=== PATIENT | female | born 1980 | race Two or more races ===

== ENCOUNTER 2018-09-12 03:27 | Emergency (ER) | payer MEDICAID, MEDICARE ==
[~2018-09-12] VITALS: Ht 160 cm; Wt 112.0 kg
[2018-09-12] MEDS ORDERED: MEPERIDINE HCL (50 MG/ML) 1 ML VIAL IM ONE (04:15)
[2018-09-12] MEDS ORDERED: methylPREDNISolone SOD SUCC 125 MG/2 ML VL IV ONE (04:15)
[2018-09-12] MEDS ORDERED: SODIUM CHLORIDE 0.9% 1,000 ML IV ONE (04:15)
[2018-09-12] MEDS ORDERED: ONDANSETRON HCL 4 MG/2 ML VIAL IV ONE (04:15)
[2018-09-12] MEDS ORDERED: BENZOCAINE (DENTAL) 20 % SPRAY 60ML MT ONE (04:15)
[2018-09-12 05:15] VITALS: BP 104/61
== END 2018-09-12 06:10 | disposition home or self-care (01) ==
LOC: ER 03:27
DX: J02.0 Streptococcal pharyngitis (principal)
CPT/HCPCS: 96372; 96374; 96375; 99283; J2175; J2405; J2930; J7030

== ENCOUNTER 2020-04-18 08:36 | Emergency (ER) | payer MEDICARE ==
[~2020-04-18] VITALS: Ht 157.5 cm; Wt 117.9 kg
[2020-04-18 09:24] VITALS: BP 133/74
[2020-04-18] MEDS ORDERED: ACETAMINOPHEN 500 MG TAB PO ONE (09:45)
== END 2020-04-18 10:09 | disposition home or self-care (01) ==
LOC: ER 08:36
DX: S83.92XA Sprain of unspecified site of left knee, initial encounter (principal); W18.39XA Other fall on same level, initial encounter; Y93.01 Activity, walking, marching and hiking; Y92.89 Other specified places as the place of occurrence of the external cause; Y99.8 Other external cause status
CPT/HCPCS: 73562

== ENCOUNTER 2020-04-26 21:37 | Emergency (ER) | payer MEDICARE ==
[~2020-04-26] VITALS: Ht 160 cm; Wt 117.9 kg
[2020-04-27 00:22] LABS: Basophils # (auto) 0 10 ^3/uL (0-0.2); Basophils % (auto) 0.4 % (0.0-2.0); Eosinophils # (auto) 0.4 10 ^3/uL (0-0.8); Eosinophils % (auto) 3.3 % (0.0-7.0); Hematocrit 39.3 % (36.0-46.0); Hemoglobin 12.9 g/dL (12.2-16.2); Lymphocytes # (auto) 2.7 10 ^3/uL (0.4-5.4); Lymphocytes % (auto) 24.3 % (10.0-50.0); Mean Corpuscular Hgb Conc. 32.9 g/dL (32.0-36.0); Mean Corpuscular Volume 91.2 fL (80.0-100.0); Monocytes # (auto) 0.9 10 ^3/uL (0-1.3); Monocytes % (auto) 8.5 % (0.0-12.0); Neutrophils % (auto) 63.5 % (37.0-80.0); Nucleated Red Blood Cells % 0.1 %; Platelet Count (auto) 369 10^3/uL (140-450); Red Blood Cells 4.31 10^6/uL (4.0-5.20); Red Cell Distribution Width 14.3 % (11.8-14.3); White Blood Cell 11.1 10^3/uL (4.4-10.8)
[2020-04-27 00:38] LABS: INR 1.01 (0.9-1.15); Partial Thromboplastin Time 27.9 sec (23.64-32.05)
[2020-04-27 06:00] VITALS: BP 142/89
== END 2020-04-27 06:15 | disposition home or self-care (01) ==
LOC: ER 21:37
DX: S80.12XA Contusion of left lower leg, initial encounter (principal); X58.XXXA Exposure to other specified factors, initial encounter; Y93.89 Activity, other specified; Y92.89 Other specified places as the place of occurrence of the external cause; Y99.8 Other external cause status
CPT/HCPCS: 29515; 36415; 73590; 73620; 85025; 85610; 85730; 93971

== ENCOUNTER 2020-05-28 01:24 | Emergency (ER) | payer MEDICARE, MEDICAID ==
[~2020-05-28] VITALS: Ht 160 cm; Wt 111.1 kg
[2020-05-28] MEDS ORDERED: ACETAMINOPHEN/CODEINE#3 (300/30mg) TAB PO ONE (08:45)
[2020-05-28 09:00] VITALS: BP 110/68
== END 2020-05-28 09:10 | disposition home or self-care (01) ==
LOC: ER 01:24
DX: S93.401A Sprain of unspecified ligament of right ankle, initial encounter (principal); X50.0XXA Overexertion from strenuous movement or load, initial encounter; Y93.89 Activity, other specified; Y92.89 Other specified places as the place of occurrence of the external cause; Y99.8 Other external cause status
CPT/HCPCS: 73610